=== PATIENT | female | born 1960 | race Caucasian/White ===

== ENCOUNTER 2017-01-27 15:22 | Emergency (ER) | payer MEDICAID ==
[~2017-01-27] VITALS: Ht 157.5 cm; Wt 83.0 kg
[2017-01-27 15:30] VITALS: BP_SYST 148
[2017-01-27] MEDS ORDERED: KETOROLAC TROMETHAMINE 60 MG/2 ML VIAL IM ONE (16:00)
[2017-01-27] MEDS ORDERED: BACITRACIN 1 GM OINT TP ONE (16:15)
[2017-01-27 17:12] VITALS: BP_SYST 148
== END 2017-01-27 17:12 | disposition home or self-care (01) ==
LOC: SED 15:22
DX: S46.812A Strain of other muscles, fascia and tendons at shoulder and upper arm level, left arm, initial encounter (principal); S20.20XA Contusion of thorax, unspecified, initial encounter; S16.1XXA Strain of muscle, fascia and tendon at neck level, initial encounter; J45.909 Unspecified asthma, uncomplicated; E11.9 Type 2 diabetes mellitus without complications; K21.9 Gastro-esophageal reflux disease without esophagitis; I10 Essential (primary) hypertension; F41.9 Anxiety disorder, unspecified; E78.00 Pure hypercholesterolemia, unspecified; F17.210 Nicotine dependence, cigarettes, uncomplicated; Z71.6 Tobacco abuse counseling; Z98.51 Tubal ligation status; W19.XXXA Unspecified fall, initial encounter; Y93.01 Activity, walking, marching and hiking; Y92.89 Other specified places as the place of occurrence of the external cause; Y99.8 Other external cause status
CPT/HCPCS: 29130; 71100; 73020; 96372; 99284; J1885

== ENCOUNTER 2017-03-21 12:58 | Emergency (ER) | payer MEDICAID ==
[~2017-03-21] VITALS: Ht 160 cm; Wt 86.2 kg
[2017-03-21 13:07] VITALS: BP_SYST 137
--- NOTE | 2017-03-21 13:12 | NUR ---
Pt placed to ER bed 06, to gown. Pt s/p slip and fall while cleaning her pool. Pt states that she hit back of head and passed out. Pt also c/o right hip pain. Hematoma to posterior head. No focal neurodeficits noted.
--- NOTE | 2017-03-21 14:00 | NUR ---
ER at bedside examining patient.
--- NOTE | 2017-03-21 14:30 | NUR ---
Pt is resting in chair with no noted distress or discomfort.
--- NOTE | 2017-03-21 14:52 | NUR ---
Patient given written and verbal discharge instructions and verbalizes understanding. ER MD discussed with patient the results and treatment provided. Patient in stable condition. ID arm band removed. Rx of zofran and tylenol codeine #3 given. Patient educated on pain management and to follow up with PMD. Pain Scale 3. Dr Paul is aware and pain medication was prescribed for home and pt states will take when home. Opportunity for questions provided and answered.
[2017-03-21 14:53] VITALS: BP_SYST 130
== END 2017-03-21 14:53 | disposition home or self-care (01) ==
LOC: SED 12:58
DX: S09.90XA Unspecified injury of head, initial encounter (principal); F07.81 Postconcussional syndrome; J45.909 Unspecified asthma, uncomplicated; E11.9 Type 2 diabetes mellitus without complications; K21.9 Gastro-esophageal reflux disease without esophagitis; I10 Essential (primary) hypertension; F41.9 Anxiety disorder, unspecified; E78.00 Pure hypercholesterolemia, unspecified; Z90.89 Acquired absence of other organs; Z98.51 Tubal ligation status; F17.210 Nicotine dependence, cigarettes, uncomplicated; W01.10XA Fall on same level from slipping, tripping and stumbling with subsequent striking against unspecified object, initial encounter; Y93.89 Activity, other specified; Y92.89 Other specified places as the place of occurrence of the external cause; Y99.8 Other external cause status
CPT/HCPCS: 70450-TC; 99284

== ENCOUNTER 2017-09-20 21:36 | Emergency (ER) | payer MEDICAID ==
[~2017-09-20] VITALS: Ht 157.5 cm; Wt 84.8 kg
[2017-09-20 21:46] VITALS: BP_SYST 129
--- NOTE | 2017-09-20 21:46 | NUR ---
Patient to [facility] for evaluation. Side rails up. Report given to LAURENCE BELL.
--- NOTE | 2017-09-20 21:50 | NUR ---
Pt reports having 10/10 pain to L hand due to spilling hot candle wax on it. White blisters noted on hand. Respirations even and unlabored. No acute distress noted.
--- NOTE | 2017-09-20 22:00 | NUR ---
ER Dr. Padgett at bedside examining patient.
[2017-09-20] MEDS: MORPHINE 2 MG/ML INJ. SYRINGE IVP ONE (22:05)
[2017-09-20] MEDS: DIPH-TET-PERTUS Vaccine 0.5 ML VIAL (ADACEL) I.M. ONE (22:08)
[2017-09-20] MEDS: NACL 0.9% 1,000 ML IV ONE (22:09)
[2017-09-20] MEDS ORDERED: BACITRACIN 1 GM OINT TP ONE (22:45)
[2017-09-20 23:08] VITALS: BP_SYST 125
--- NOTE | 2017-09-20 23:08 | NUR ---
Patient given written and verbal discharge instructions and verbalizes understanding. ER MD discussed with patient the results and treatment provided. Patient in stable condition. ID arm band removed. IV catheter removed intact and dressing applied, no active bleeding.Rx of Neosporin. Bactrim and Smiley given. Patient educated on pain management and to follow up with PMD. Pain Scale 3/10.Opportunity for questions provided and answered.
== END 2017-09-20 23:08 | disposition home or self-care (01) ==
LOC: SED 21:36
DX: T23.202A Burn of second degree of left hand, unspecified site, initial encounter (principal); R03.0 Elevated blood-pressure reading, without diagnosis of hypertension; J45.909 Unspecified asthma, uncomplicated; K21.9 Gastro-esophageal reflux disease without esophagitis; F41.9 Anxiety disorder, unspecified; E78.00 Pure hypercholesterolemia, unspecified; X19.XXXA Contact with other heat and hot substances, initial encounter; Y93.89 Activity, other specified; Y92.89 Other specified places as the place of occurrence of the external cause; Y99.8 Other external cause status
CPT/HCPCS: 16020; 90471; 90715; 96361; 96374; 99284; J2270; J7030